=== PATIENT | female | born 1955 | race American Indian/Alaskan Native ===

== ENCOUNTER 2017-08-11 10:04 | Outpatient (CLI) | payer BC ==
--- NOTE | 2017-08-11 11:57 | Cat Scan Report ---
CT ABDOMEN PELVIS WITHOUT CONTRAST: HISTORY: Malignant neoplasm of unspecified kidney except renal pelvis. COMPARISON: None at this facility. TECHNIQUE: Helical CT in 1.25mm intervals without IV contrast. Sagittal and coronal reconstructions. FINDINGS: Lung bases: Normal. Liver: Normal. Biliary system: Cholecystectomy changes. No biliary dilatation is appreciated. Pancreas: Normal. Spleen: Normal. Kidneys/ureters/bladder: The right kidney is within normal limits. Surgical changes or scarring in the posterior left kidney is identified near mid pole. Please correlate with the patient's history. No renal mass is detected although no IV contrast was administered. 1 cm cyst in the mid left kidney is noted. No nephrolithiasis or hydronephrosis. The ureters and bladder are within normal limits. Adrenal glands: Normal. Aorta: Normal. Intestines: Unremarkable given no oral contrast was administered. Surgical changes are noted in the stomach, mid small bowel and distal small bowel, correlate with history. Appendix: Normal. Pelvic viscera: Hysterectomy changes are suspected. Ascites: None. Adenopathy: None. Musculoskeletal: Mild lumbar spondylosis. No fracture or suspicious bony lesion. IMPRESSION: Left kidney scarring versus surgical changes. No obvious recurrent renal mass or suspicious renal lesion on noncontrast CT. Surgical changes as described. No evidence for an acute process or metastatic disease.
== END 2017-08-11 10:05 | disposition home or self-care (01) ==
LOC: CT 10:04
PROVIDERS: ATTEND Urology
DX: C64.9 Malignant neoplasm of unspecified kidney, except renal pelvis (principal); N28.1 Cyst of kidney, acquired; M47.896 Other spondylosis, lumbar region; Z90.49 Acquired absence of other specified parts of digestive tract
CPT/HCPCS: 74176

== ENCOUNTER 2018-04-21 11:05 | Outpatient (CLI) | payer MEDICARE ==
--- NOTE | 2018-04-21 22:34 | Cat Scan Report ---
FINAL REPORT PROCEDURE: CT ABDOMEN WO CON TECHNIQUE: Computerized axial tomography of the abdomen was performed without intravenous contrast. This study is performed without intravascular contrast material and its sensitivity for abdominal and pelvic pathology, including neoplasms, inflammation, abscess, free fluid, thrombosis, arterial dissection and infarction, is reduced compared with a contrast enhanced study. HISTORY: RENAL CANCER COMPARISON: No prior studies are available for comparison. FINDINGS: There is mild degree thickening of the interstitial septa involving visualized bilateral lower lungs. An ill-defined hypodense lesion is noted involving the inferior portion right lobe liver measuring 2.1 centimeters. Spleen, pancreas, and bilateral adrenal glands are within normal limits. An irregular area of scarring is noted involving the mid portion left kidney consistent with the prior partial nephrectomy. An ill-defined cystic lesion measuring 0.9 centimeters is noted in the midpole left kidney. There is no evidence of obstructive uropathy. Aorta is of normal caliber. There is no free fluid or free air. Status post cholecystectomy. Small bowel loops are within normal limits. Mild degree residual stool is noted. Appendix is normal. Vertebral height is normal. There is no lymphadenopathy. Coronary arterial calcification is noted. IMPRESSION: Impression An ill-defined hypodense lesion of right lobe liver is a nonspecific finding and the a metastatic lesion cannot be excluded. Comparison with any prior studies would be of help. Post-contrast CT or MRI or ultrasound with Doppler may be recommended for further evaluation. 0.9 centimeter cystic lesion in the midpole left kidney cannot be further evaluated on this noncontrast study. Comparison with prior studies would be of help.
== END 2018-04-21 11:06 | disposition home or self-care (01) ==
LOC: CT 11:05
PROVIDERS: ATTEND Urology
DX: C64.2 Malignant neoplasm of left kidney, except renal pelvis (principal); Z88.0 Allergy status to penicillin; Z88.2 Allergy status to sulfonamides; Z88.6 Allergy status to analgesic agent; Z91.040 Latex allergy status; Z88.1 Allergy status to other antibiotic agents
CPT/HCPCS: 74150

== ENCOUNTER 2018-12-17 10:12 | Outpatient (CLI) | payer MEDICARE ==
--- NOTE | 2018-12-17 12:58 | Cat Scan Report ---
CT ABDOMEN WITHOUT CONTRAST HISTORY: Renal cancer. TECHNIQUE: Helical CT without IV contrast. Sagittal and coronal reformatted images. FINDINGS: Comparison is made to the CT abdomen pelvis without contrast dated 08/11/[address] abdomen without contrast dated 04/21/18. Partial left nephrectomy is suspected which is stable since the previous 2 examinations. There is a 9 mm hypodensity in the lateral mid kidney which is unchanged and consistent with a small cyst. No recurrent renal mass or perinephric adenopathy is identified on noncontrast CT. The right kidney remains normal. The liver, pancreas, spleen and adrenal glands are within normal limits. The gallbladder has been surgically removed. Surgical changes are noted in the stomach and mid small bowel, correlate with history. No evidence for bowel obstruction. Mild diverticulosis of the colon is noted. The lung bases are clear. No suspicious bony lesion is identified. IMPRESSION: Stable findings since 08/11/17. No evidence for recurrent or metastatic disease.
== END 2018-12-17 10:13 | disposition home or self-care (01) ==
LOC: CT 10:12
PROVIDERS: ATTEND Urology
DX: C64.2 Malignant neoplasm of left kidney, except renal pelvis (principal)
CPT/HCPCS: 74150

== ENCOUNTER 2019-07-01 11:35 | Outpatient (CLI) | payer MEDICARE ==
--- NOTE | 2019-07-01 13:37 | Cat Scan Report ---
CT abdomen wo con INDICATION: Renal cancer, follow-up. TECHNIQUE: All CT scans at this location are performed using the following dose modulation technique: Automated exposure control. Helical slices were obtained through the abdomen. No contrast is administered. COMPARISON: CT scan dated 12/17/2018 and 08/11/2017 FINDINGS: Abdomen: No acute abnormality is seen in the lung bases. Postoperative changes are noted in the stoma ch. There is a 2.1 cm hypodense lesion in the right lobe of the liver which is unchanged compared to prior study. Spleen, pancreas, adrenal glands, and kidneys are unchanged in appearance. Small hypoden sity in the left kidney is stable. No new renal abnormalities are seen. The aorta is normal in diamet er. There is no adenopathy. There are scattered diverticula in the imaged portion of the colon. On review of bone windows, no acute osseous abnormalities are seen. IMPRESSION: 1. There is been no significant interval change. Kidneys are stable in appearance. 2.1 cm hypodense lesion in the right lobe of the liver is stable. Signer Name: Dante Baker MD Signed: 07/01/2019 1:33 PM Workstation Name: [id number]
== END 2019-07-01 11:36 | disposition home or self-care (01) ==
LOC: CT 11:35
PROVIDERS: ATTEND Urology
DX: C64.2 Malignant neoplasm of left kidney, except renal pelvis (principal); K76.9 Liver disease, unspecified; Z88.0 Allergy status to penicillin; Z88.8 Allergy status to other drugs, medicaments and biological substances; Z88.1 Allergy status to other antibiotic agents; Z88.5 Allergy status to narcotic agent
CPT/HCPCS: 74150

== ENCOUNTER 2019-07-22 10:02 | Outpatient (CLI) | payer MEDICARE ==
[2019-07-22 11:31] LABS: Blood Urea Nitrogen 14 mg/dL (7-17)
--- NOTE | 2019-07-22 13:28 | Cat Scan Report ---
CT ABDOMEN without and with CONTRAST HISTORY: MAIN: C64.2 RENAL CANCER [id number] 100ML. COMPARISON: 12/17/2018. 07/01/2019. TECHNIQUE: CT images of the abdomen were obtained before and after administration of intravenous cont rast. Sagittal and coronal reformatted images. All CT scans at this location are performed using CT d ose reduction for ALARA by means of automated exposure control. CONTRAST: 100 ml of intravenous contrast administered. FINDINGS: Partial left nephrectomy changes are suspected and unchanged. There is no evidence for recurrent paul l mass or retroperitoneal adenopathy. There is normal enhancement following IV contrast. Visualized u reters are normal course and caliber. 2.0 cm cavernous hemangioma in the right hepatic lobe is unchanged. The remainder of the liver is unr emarkable. The gallbladder has been surgically removed. The pancreas, spleen, adrenal glands, and aor ta remain unremarkable. Surgical changes are noted in the stomach. There are scattered diverticula throughout the length of t he colon. No evidence for bowel obstruction or focal inflammation. Hysterectomy changes are suspected. The visualized pelvic viscera are unremarkable otherwise. The lung bases are clear. Normal heart size. No suspicious bony lesion or fracture is identified. IMPRESSION: Stable partial left nephrectomy changes. No evidence for disease recurrence or metastasis. Cavernous hemangioma the liver. Diverticulosis of the colon. Surgical changes as described. Signer Name: Ulices Salgado Jr, MD Signed: 07/22/2019 1:23 PM Workstation Name: [id number]
== END 2019-07-22 10:03 | disposition home or self-care (01) ==
LOC: CT 10:02
PROVIDERS: ATTEND Urology
DX: K57.10 Diverticulosis of small intestine without perforation or abscess without bleeding (principal); D18.03 Hemangioma of intra-abdominal structures; C64.2 Malignant neoplasm of left kidney, except renal pelvis
CPT/HCPCS: 36415; 74170; 82565; 84520

== ENCOUNTER 2019-10-04 10:32 | Outpatient (CLI) | payer MEDICARE ==
--- NOTE | 2019-10-04 11:31 | Cat Scan Report ---
CT abdomen wo con INDICATION: Renal cancer, partial nephrectomy on the left TECHNIQUE: All CT scans at this location are performed using the following dose modulation technique: Automated exposure control. Helical slices were obtained through the abdomen. No contrast is administered. COMPARISON: CT scan dated 07/22/2019 FINDINGS: Abdomen: No acute abnormality is seen in the lower chest. Postoperative changes are again noted in th e stomach. There is been prior cholecystectomy. Prior partial nephrectomy on the left is noted. The k idneys are unchanged in appearance. The liver is unchanged. Cavernous hemangioma in the liver is stab le. There is no adenopathy. On review of bone windows, no acute osseous abnormalities are seen. IMPRESSION: 1. There has been no significant change. Changes of partial nephrectomy on the left are stable. Signer Name: Dante Baker MD Signed: 10/04/2019 11:27 AM Workstation Name: [id number]
== END 2019-10-04 10:33 | disposition home or self-care (01) ==
LOC: CT 10:32
PROVIDERS: ATTEND Urology
DX: C64.2 Malignant neoplasm of left kidney, except renal pelvis (principal); Z90.49 Acquired absence of other specified parts of digestive tract; Z90.5 Acquired absence of kidney
CPT/HCPCS: 74150

== ENCOUNTER 2020-05-04 10:53 | Outpatient (CLI) | payer MEDICARE ==
--- NOTE | 2020-05-04 13:55 | Cat Scan Report ---
CT abdomen wo con INDICATION: RENAL CANCER. COMPARISON: October 04, 2019 TECHNIQUE: Abdominal CT exam performed. All CT scans at this location are performed using CT dose red uction for ALARA by means of automated exposure control. FINDINGS: CT ABDOMEN and PELVIS: Lung Bases: No significant abnormality. Liver: No significant abnormality. Biliary: Gallbladder is surgically absent. Spleen: No significant abnormality. Pancreas: No significant abnormality. Adrenals: No significant abnormality. Kidneys: Partial left nephrectomy. No mass is seen within the resection bed. Lymphatics: No lymphadenopathy. Vasculature: No significant abnormality. Bowel/Peritoneum: Postoperative changes from Maynor-en-Y gastric bypass. Osseous Structures: No aggressive osseous lesion. Additional Findings: None IMPRESSION: 1. Partial left nephrectomy without evidence of recurrence or metastasis. Signer Name: Ricardo Tucker MD Signed: 05/04/2020 1:51 PM Workstation Name: [id number]
== END 2020-05-04 10:54 | disposition home or self-care (01) ==
LOC: CT 10:53
PROVIDERS: ATTEND Urology
DX: C64.2 Malignant neoplasm of left kidney, except renal pelvis (principal); Z90.5 Acquired absence of kidney
CPT/HCPCS: 74150

== ENCOUNTER 2020-11-29 11:26 | Outpatient (CLI) | payer MEDICARE ==
--- NOTE | 2020-11-29 12:42 | Cat Scan Report ---
CT abdomen pelvis wo con INDICATION: MALIGNANT NEOPLASM OF RIGHT KIDNEY,. TECHNIQUE: All CT scans at this location are performed using CT dose reduction for ALARA by means of automated e xposure control. COMPARISON: 05/04/2020 FINDINGS: Lung bases are clear of acute disease. Cholecystectomy. Postop change in the stomach. Liver, spleen, pancreas and right kidney are normal. Post partial left nephrectomy, with no appreciable mass or nancy opathy. Right kidney and both adrenals are normal. Pelvis Urinary bladder is negative. Uterus is absent. Ovaries appear normal. Diffuse osteopenia. Degenerative changes in the lumbar spine. No acute skeletal lesions. IMPRESSION: 1. Partial left nephrectomy. No evidence of local recurrence or metastasis. Signer Name: Ravi Cuello MD Signed: 11/29/2020 12:37 PM Workstation Name: [id number]
== END 2020-11-29 11:27 | disposition home or self-care (01) ==
LOC: CT 11:26
PROVIDERS: ATTEND Urology
DX: C64.1 Malignant neoplasm of right kidney, except renal pelvis (principal); M85.88 Other specified disorders of bone density and structure, other site; Z90.49 Acquired absence of other specified parts of digestive tract; Z90.710 Acquired absence of both cervix and uterus; Z90.5 Acquired absence of kidney
CPT/HCPCS: 74176

== ENCOUNTER 2021-09-05 10:25 | Outpatient (CLI) | payer MEDICARE ==
--- NOTE | 2021-09-05 11:11 | Cat Scan Report ---
CT abdomen pelvis wo con INDICATION: D30.01 BENIGN NEOPLASM OF RIGHT KIDNEY. COMPARISON: 11/29/2020 and July 22 2019 TECHNIQUE: Abdominal and pelvic CT exam performed. All CT scans at this location are performed using CT dose reduction for ALARA by means of automated exposure control. FINDINGS: CT ABDOMEN and PELVIS: Lung Bases: No significant abnormality. Liver: No significant abnormality. Biliary: No significant abnormality. Spleen: No significant abnormality. Pancreas: No significant abnormality. Adrenals: No significant abnormality. Kidneys: Postoperative changes from partial left nephrectomy. No mass seen in the postoperative bed. Lymphatics: No lymphadenopathy. Vasculature: No significant abnormality. Bowel: Postoperative changes from right gastric bypass. No significant abnormality. Pelvis: Uterus is surgically absent. Osseous Structures: No aggressive osseous lesion. Additional Findings: None IMPRESSION: 1. Postoperative changes from partial left nephrectomy without evidence of recurrence or metastasis. Signer Name: Ricardo Tucker MD Signed: 09/05/2021 11:07 AM Workstation Name: [id number]
== END 2021-09-05 10:26 | disposition home or self-care (01) ==
LOC: CT 10:25
PROVIDERS: ATTEND Urology
DX: D30.01 Benign neoplasm of right kidney (principal); Z90.5 Acquired absence of kidney
CPT/HCPCS: 74176